=== PATIENT | female | born 1970 | race Caucasian/White ===

== ENCOUNTER 2020-03-09 19:26 | Emergency (ER) | payer OTHER ==
[~2020-03-09] VITALS: Ht 157.5 cm; Wt 71.7 kg
[2020-03-09 19:54] VITALS: BP_SYST 118; BP_SYST 18; BP_DIAS 73
--- NOTE | 2020-03-09 19:55 | NUR ---
PT TO WAIT IN TENT FOR MEDICAL EVALUATION. PT WEARING MASK
--- NOTE | 2020-03-09 20:20 | NUR ---
PT SEEN IN TENT BY LE LOW
--- NOTE | 2020-03-09 20:25 | NUR ---
EVALUATED BY [facility] L[facility], NO NURSING CARE PROVIDED FOR PT.
--- NOTE | 2020-03-09 20:35 | NUR ---
Patient discharged with v/s stable. Written and verbal after care instructions given and explained. Patient alert, oriented and verbalized understanding of instructions. Ambulatory with steady gait. All questions addressed prior to discharge. ID band removed. Patient advised to follow up with PMD. Rx of TYLENOL AND ZOFRAN given. Patient educated on indication of medication including possible reaction and side effects. Opportunity to ask questions provided and answered.
== END 2020-03-09 20:35 | disposition home or self-care (01) ==
LOC: MED 19:26
DX: B34.9 Viral infection, unspecified (principal); Z20.828 Contact with and (suspected) exposure to other viral communicable diseases
CPT/HCPCS: 99283